=== PATIENT | male | born 1960 | race American Indian/Alaskan Native ===

== ENCOUNTER 2019-12-04 07:01 | Observation (INO) | payer MEDICARE ==
[2019-11-29 12:03] LABS: Basophils # (Auto) 0.1 K/mm3 (0.0-0.1); Basophils % (Auto) 0.9 % (0.0-1.8); Eosinophils # (Auto) 0.2 K/mm3 (0.0-0.4); Eosinophils % (Auto) 2.9 % (0.0-4.3); Hematocrit 34.9 % (35.5-45.6); Lymphocytes # (Auto) 2.1 K/mm3 (1.2-5.4); Lymphocytes % (Auto) 24.8 % (13.4-35.0); Mean Corpuscular HGB Conc 34 % (32-34); Mean Corpuscular Volume 82 fl (84-94); Monocytes # (Auto) 0.9 K/mm3 (0.0-0.8); Platelet Count 294 K/mm3 (140-440); Red Blood Count 4.26 M/mm3 (3.65-5.03); Red Cell Distribution Width 16.1 % (13.2-15.2)
--- NOTE | 2019-11-29 12:14 | Anesthesia Consultation ---
Anesthesia Consult and Med Hx Date of service: 12/04/19 - Airway Anesthetic Teeth Evaluation: Poor (denies loose teeth) ROM Head & Neck: Adequate Mental/Hyoid Distance: Adequate Mallampati Class: Class II Intubation Access Assessment: Probably Good - Pulmonary Exam CTA: No (scattered expiratory wheezing which resolved with cough) - Cardiac Exam Cardiac Exam: RRR - Pre-Operative Health Status ASA Pre-Surgery Classification: ASA3 Proposed Anesthetic Plan: General - Pulmonary Hx Smoking: Yes (quit 1 yr ago) Hx Respiratory Symptoms: No - Cardiovascular System Hx Hypertension: Yes (amlodipine prescribed prn but does not check BP regularly) Hx Heart Attack/AMI: No (normal EF on recent TTE) Hx Percutaneous Transluminal Coronary Angioplasty (PTCA): No Hx Cardia Arrhythmia: No - Central Nervous System CVA: No - Gastrointestinal Hx Gastroesophageal Reflux Disease: No - Endocrine Hx Renal Disease: Yes (CKD) Hx Liver Disease: No Hx Insulin Dependent Diabetes: Yes Hx Thyroid Disease: No - Hematic Hx Anemia: No - Other Systems Hx Cancer: Yes (prostate ca) Hx Obesity: No - Additional Comments Anesthesia Medical History Comments: No prior anesthetics. Patient has significant hearing impairment.
[2019-11-29 12:18] LABS: Albumin 4.1 g/dL (3.9-5); Calcium 9.7 mg/dL (8.4-10.2)
[2019-11-29 12:21] LABS: INR 0.93 (0.87-1.13)
[~2019-12-04 07:01] MED LIST: ALBUTEROL 2.5 MG/3 ML NEBU IH SCH; CELECOXIB 200 MG CAP PO NR; GABAPENTIN 300 MG CAP PO NR; LACTATED RINGERS 1,000 ML IV SCH; MIDAZOLAM 2 MG/2 ML INJ IV NR; ceFAZolin/Water 2 GM/20 ML 2 GM/20 ML SYRINGE IV NR
--- NOTE | 2019-12-04 07:19 | Anesthesia Day of Surgery ---
Anesthesia Day of Surgery - Day of Surgery Patient Examined: Yes Patient H&P Reviewed: Yes Patient is NPO: Yes
[2019-12-04] MEDS ORDERED: LIDOCAINE MPF (2%) 20 MG/1 ML VIAL 5 ML ONE (07:23)
[2019-12-04] MEDS ORDERED: propofoL 200 MG/20 ML VIAL IV ONE (07:23)
[2019-12-04] MEDS ORDERED: HYDROmorphone 1 MG/1 ML INJ ONE (07:23)
[2019-12-04] MEDS ORDERED: ROCURONIUM 50 MG/5 ML INJ IV ONE (07:24)
[2019-12-04] MEDS ORDERED: ONDANSETRON 4 MG/2 ML INJ IV PRN ×2 (07:43→11:00)
[2019-12-04] MEDS ORDERED: HYDROmorphone 1 MG/1 ML INJ IV PRN (07:43)
[2019-12-04] MEDS ORDERED: fentaNYL 100 MCG/2 ML INJ IV PRN (07:43)
[2019-12-04] MEDS ORDERED: CALCIUM CHLORIDE 1,000 MG/10 ML SYRINGE IV ONE ×2 (07:58→09:19)
[2019-12-04] MEDS ORDERED: CITRIC ACID-SOD CITRATE 500 ML IV ONE (07:58)
[2019-12-04] MEDS ORDERED: THROMBIN (RECOMBINANT) 5,000 UNIT VIAL TP ONE ×2 (07:59→09:20)
[2019-12-04] MEDS ORDERED: METHYLENE BLUE 50 MG/10 ML AMP ONE (07:59)
[2019-12-04] MEDS ORDERED: PHENYLEPHRINE/NS 1,000 MCG/10 ML SYRINGE (OR USE) IV ONE (08:37)
[2019-12-04] MEDS ORDERED: CITRIC ACID-SOD CITRATE SOLN 500 ML IV SOLN IV ONE (09:18)
[2019-12-04] MEDS ORDERED: BUPIVACAINE-EPINEPHRINE/PF 0.5%-1:200,000 (30 ML) VIAL INFILTRATI ONE ×2 (09:18→09:45)
[2019-12-04] MEDS ORDERED: SODIUM CHLORIDE 0.9% IRRIG SOLN 2000 ML IR ONE (09:19)
[2019-12-04] MEDS ORDERED: LACTATED RINGERS 1,000 ML ONE (10:35)
--- NOTE | 2019-12-04 10:56 | Short Stay Summary ---
Short Stay Documentation Date of service: 12/04/19 Narrative H&P: 59 yr old male with prostate cancer & urinary retention discussed options with pt & family agreed to robotic prostatectomy - History Past Medical History: diabetes, hypertension Past Surgical History: No surgical history Social history: no significant social history - Allergies and Medications Current Medications: Allergies No Known Allergies Allergy (Verified 11/28/19 17:02) Home Medications Medication Instructions Recorded Confirmed Last Taken Type Insulin Detemir [Levemir VIAL] 10 unit SQ BID 11/29/19 12/04/19 12/03/19 21:00 History Insulin Regular, Human [Novolin R] 6 unit SQ TID 11/29/19 12/04/19 12/03/19 19:00 History Tamsulosin [Flomax] 0.4 mg PO QDAY 11/29/19 12/04/19 12/03/19 09:00 History amLODIPine [Norvasc] 10 mg PO PRN PRN 11/29/19 12/04/19 11/20/19 09:00 History metFORMIN [Glucophage] 500 mg PO QDAY 11/29/19 12/04/19 12/03/19 09:00 History Active Medications Albuterol (Proventil) 2.5 mg IH PREOP BILLY Stop: 12/04/19 23:59 Last Admin: 12/04/19 07:30 Dose: 2.5 mg Documented by: Celecoxib (Celebrex) 200 mg PO PREOP NR Stop: 12/04/19 23:59 Last Admin: 12/04/19 07:30 Dose: 200 mg Documented by: Fentanyl (Sublimaze) 50 mcg IV Q5MIN PRN PRN Reason: Pain , Severe (7-10) Stop: 12/04/19 22:00 Gabapentin (Gabapentin) 300 mg PO PREOP NR Stop: 12/04/19 23:59 Last Admin: 12/04/19 07:30 Dose: 300 mg Documented by: Hydromorphone HCl (Dilaudid) 0.25 mg IV Q10MIN PRN PRN Reason: Pain, Moderate (4-6) Stop: 12/04/19 20:00 Cefazolin Sodium (Ancef/Sterile Water 2 Gm/20 Ml) 2 gm in 20 mls @ 80 mls/hr IV PREOP NR; Protocol Stop: 12/04/19 23:59 Lactated Ringer's (Lactated Ringers) 1,000 mls @ 100 mls/hr IV DIRECT BILLY Last Admin: 12/04/19 07:30 Dose: 100 mls/hr Documented by: Midazolam HCl (Versed) 2 mg IV PREOP NR Stop: 12/04/19 23:59 Ondansetron HCl (Zofran) 4 mg IV ONCE PRN PRN Reason: Nausea And Vomiting Stop: 12/04/19 13:00 - Physical exam General appearance: no acute distress, well-nourished Integumentary: no rash, no growths, no abnormal pigmentation HEENT: Atraumatic, PERRLA Lungs: Clear to auscultation, Normal air movement Gastrointestinal: normal Male Genitourinary: normal Rectal Exam: normal rectal tone Extremities: no ischemia, No edema - Brief post op/procedure progress note Date of procedure: 12/04/19 Pre-op diagnosis: prostate cancer, retention Post-op diagnosis: same Procedure: robotic prostatectomy Anesthesia: GETA Surgeon: MORGAN HALEY Estimated blood loss: 50-100ml Pathology: list (prostate) Specimen disposition: to lab Condition: stable - Hospital course Hospital course: cipro, norisidoro, post op info on chart dc vanessa--done Hb9/ Cr 2---will check as outpt - Disposition Condition at discharge: Stable Short Stay Discharge Plan Follow up with: PRIMARY CARE, [Primary Care Provider] - 7 Days
[2019-12-04] MEDS ORDERED: ZOLPIDEM 5 MG TAB PO PRN (11:00)
[2019-12-04] MEDS ORDERED: DEXTROSE 50% IN WATER (25GM) 50 ML SYRINGE IV PRN (11:00)
[2019-12-04] MEDS ORDERED: NALOXONE 0.4 MG/1 ML INJ IV PRN (11:00)
[2019-12-04] MEDS ORDERED: amLODIPine 10 MG TAB PO PRN (11:05)
[2019-12-04] MEDS ORDERED: KETOROLAC 30 MG/1 ML INJ ONE (11:07)
[2019-12-04] MEDS ORDERED: ONDANSETRON 4 MG/2 ML INJ ONE (11:07)
[2019-12-04] MEDS: INSULIN REGULAR, HUMAN 100 UNITS/1 ML SUB-Q SCH ×2 (11:40→18:25)
--- NOTE | 2019-12-04 11:42 | Post Anesthesia Evaluation ---
- Post Anesthesia Evaluation Patient Participated: Yes Airway Patent: Yes Stable Respiratory Function: Yes Nausea/Vomiting: No Temp > 96.8F: Yes Pain Manageable: Yes Adequeate Hydration: Yes Anesthesia Complications: No
[2019-12-04] MEDS: ceFAZolin/NS 1 GM/50 ML 1 GM/50 ML BAG IV SCH (16:38)
[2019-12-04] MEDS: SODIUM CHLORIDE 0.9% 1000 ML 1,000 ML IV SCH (16:41)
[2019-12-04] MEDS: MORPHINE 2 MG/1 ML INJ IV PRN (20:19)
--- NOTE | 2019-12-04 21:29 | Consultation ---
History of Present Illness - Reason for Consult Consult date: 12/04/19 Medical management Requesting physician: MORGAN HALEY - History of Present Illness S/p Robotic prostatectomy--doing well postoperatively.No SOB. Drain in place on L flank. Past History Past Medical History: diabetes, hypertension Past Surgical History: Other (Robotic prostatectomy) Social history: no significant social history, lives with family, full code Family history: hypertension Medications and Allergies Allergies Allergy/AdvReac Type Severity Reaction Status Date / Time No Known Allergies Allergy Verified 11/28/19 17:02 Home Medications Medication Instructions Recorded Confirmed Last Taken Type Insulin Detemir [Levemir VIAL] 10 unit SQ BID 11/29/19 12/04/19 12/03/19 21:00 History Insulin Regular, Human [Novolin R] 6 unit SQ TID 11/29/19 12/04/19 12/03/19 19:00 History Tamsulosin [Flomax] 0.4 mg PO QDAY 11/29/19 12/04/19 12/03/19 09:00 History amLODIPine [Norvasc] 10 mg PO PRN PRN 11/29/19 12/04/19 11/20/19 09:00 History metFORMIN [Glucophage] 500 mg PO QDAY 11/29/19 12/04/19 12/03/19 09:00 History Active Meds: Active Medications Acetaminophen/Hydrocodone Bitart ([place] 5/325) 2 each PO Q4H PRN PRN Reason: Pain, Moderate (4-6) Albuterol (Proventil) 2.5 mg IH PREOP BILLY Stop: 12/04/19 23:59 Last Admin: 12/04/19 07:30 Dose: 2.5 mg Documented by: Amlodipine Besylate (Amlodipine) 10 mg PO DAILY PRN PRN Reason: Hypertension Celecoxib (Celebrex) 200 mg PO PREOP NR Stop: 12/04/19 23:59 Last Admin: 12/04/19 07:30 Dose: 200 mg Documented by: Dextrose (D50w (25gm) Syringe) 50 ml IV Q30MIN PRN; Protocol PRN Reason: Hypoglycemia Fentanyl (Sublimaze) 50 mcg IV Q5MIN PRN PRN Reason: Pain , Severe (7-10) Stop: 12/04/19 22:00 Gabapentin (Gabapentin) 300 mg PO PREOP NR Stop: 12/04/19 23:59 Last Admin: 12/04/19 07:30 Dose: 300 mg Documented by: Cefazolin Sodium (Ancef/Sterile Water 2 Gm/20 Ml) 2 gm in 20 mls @ 80 mls/hr IV PREOP NR; Protocol Stop: 12/04/19 23:59 Lactated Ringer's (Lactated Ringers) 1,000 mls @ 100 mls/hr IV DIRECT BILLY Last Admin: 12/04/19 07:30 Dose: 100 mls/hr Documented by: Sodium Chloride (Nacl 0.9% 1000 Ml) 1,000 mls @ 100 mls/hr IV DIRECT BILLY Last Admin: 12/04/19 16:41 Dose: 100 mls/hr Documented by: Cefazolin Sodium (Ancef/Ns 1 Gm/50 Ml) 1 gm in 50 mls @ 100 mls/hr IV Q8H BILLY; Protocol Stop: 12/05/19 00:29 Last Admin: 12/04/19 16:38 Dose: 100 mls/hr Documented by: Insulin Glargine (Lantus) 10 units SUB-Q BID BILLY Insulin Human Regular (Humulin R) 6 units SUB-Q AC BILLY Last Admin: 12/04/19 18:25 Dose: 6 units Documented by: Metformin HCl (Glucophage) 500 mg PO QAMDIAB BILLY Midazolam HCl (Versed) 2 mg IV PREOP NR Stop: 12/04/19 23:59 Morphine Sulfate (Morphine) 2 mg IV Q4H PRN PRN Reason: Pain, Moderate (4-6) Last Admin: 12/04/19 20:19 Dose: 2 mg Documented by: Naloxone HCl (Naloxone) 0.1 mg IV Q2MIN PRN PRN Reason: Res Rate </= 8 or 02 SAT < 92% Ondansetron HCl (Zofran) 4 mg IV Q8H PRN PRN Reason: Nausea And Vomiting Zolpidem Tartrate (Ambien) 5 mg PO QHS PRN PRN Reason: Sleep Review of Systems All systems: negative Exam - Constitutional Vitals: Temp Pulse Resp BP Pulse Ox 97.9 F 70 18 151/70 100 12/04/19 19:44 12/04/19 19:44 12/04/19 20:19 12/04/19 19:44 12/04/19 19:44 General appearance: Present: no acute distress, well-nourished - EENT Eyes: Present: PERRL ENT: hearing intact, clear oral mucosa - Neck Neck: Present: supple, normal ROM - Respiratory Respiratory effort: normal Respiratory: bilateral: CTA - Cardiovascular Heart rate: 78 Rhythm: regular Heart Sounds: Present: S1 & S2. Absent: rub, click - Extremities Extremities: pulses symmetrical, No edema Peripheral Pulses: within normal limits - Abdominal General gastrointestinal: Present: soft, non-tender, non-distended, normal bowel sounds, other (Drain on left flank) Male genitourinary: Present: normal - Integumentary Integumentary: Present: clear, warm, dry - Musculoskeletal Musculoskeletal: gait normal, strength equal bilaterally - Psychiatric Psychiatric: appropriate mood/affect, intact judgment & insight - Neurologic Neurologic: CNII-XII intact, moves all extremities Results - Labs CBC & Chem 7: 11/29/19 10:50 11/29/19 10:50 Labs: Abnormal lab results 12/04/19 12/04/19 12/04/19 Range/Units 07:35 11:44 16:20 POC Glucose 165 H 267 H 199 H (70-105) Assessment and Plan - Patient Problems (1) BRANDON (acute kidney injury) Current Visit: Yes Status: Acute Plan to address problem: sec to VMN IV Fluids (2) IDDM (insulin dependent diabetes mellitus) Current Visit: Yes Status: Chronic Plan to address problem: COnt Insulin and coverage (3) HTN (hypertension) Current Visit: Yes Status: Chronic Qualifiers: Hypertension type: essential hypertension Qualified Code(s): I10 - Essential (primary) hypertension Plan to address problem: Cont antihypertensives (4) DVT prophylaxis Current Visit: Yes Status: Acute Plan to address problem: On SCD's
[2019-12-04] MEDS: INSULIN LISPRO 100 UNIT/ML SUB-Q SCH (21:58)
[2019-12-04] MEDS ORDERED: INSULIN DETEMIR 10 UNIT SQ SCH (22:00)
[2019-12-04] MEDS ORDERED: INSULIN GLARGINE 100 UNITS/ML SUB-Q SCH (22:00)
[2019-12-05] MEDS: MORPHINE 2 MG/1 ML INJ IV PRN ×2 (00:05→09:04)
[2019-12-05] MEDS: SODIUM CHLORIDE 0.9% 1000 ML 1,000 ML IV SCH (00:23)
[2019-12-05] MEDS: ceFAZolin/NS 1 GM/50 ML 1 GM/50 ML BAG IV SCH (00:27)
[2019-12-05] MEDS: HYDROcodone/ACETAMINOPHEN 5-325 MG TAB PO PRN ×2 (05:59→14:55)
[2019-12-05] MEDS ORDERED: metFORMIN 500 MG TAB PO SCH (08:00)
--- NOTE | 2019-12-05 08:57 | Event Note ---
Date: 12/05/19 S/p Robotic prostatectomy--doing well postoperatively vanessa removed 4am labs not drawn yet nurse informed possible home with [facility] after labs
[2019-12-05] MEDS: INSULIN REGULAR, HUMAN 100 UNITS/1 ML SUB-Q SCH ×3 (08:58→17:56)
[2019-12-05] MEDS: INSULIN LISPRO 100 UNIT/ML SUB-Q SCH ×3 (09:10→17:56)
[2019-12-05 10:44] LABS: Basophils % (Auto) 0.5 % (0.0-1.8); Eosinophils # (Auto) 0.1 K/mm3 (0.0-0.4); Eosinophils % (Auto) 1.2 % (0.0-4.3); Hematocrit 27.5 % (35.5-45.6); Hemoglobin 9.1 gm/dl (11.8-15.2); Lymphocytes # (Auto) 1.6 K/mm3 (1.2-5.4); Lymphocytes % (Auto) 18.2 % (13.4-35.0); Mean Corpuscular HGB Conc 33 % (32-34); Mean Corpuscular Volume 83 fl (84-94); Monocytes # (Auto) 0.8 K/mm3 (0.0-0.8); Monocytes % (Auto) 9.1 % (0.0-7.3); Platelet Count 304 K/mm3 (140-440); Red Blood Count 3.32 M/mm3 (3.65-5.03); Red Cell Distribution Width 15.9 % (13.2-15.2)
[2019-12-05 11:08] LABS: Calcium 8.4 mg/dL (8.4-10.2)
[2019-12-05 12:08] VITALS: BP 105/62
--- NOTE | 2019-12-05 17:20 | Progress Note ---
Assessment and Plan Assessment and plan: -- BRANDON (acute kidney injury) Current Visit: Yes Status: Acute Gentle hydration , BRANDON due to vasomotor nephropathy Advised plenty of oral fluids Patient advised to see private nephrology upon discharge -- IDDM (insulin dependent diabetes mellitus) Current Visit: Yes Status: Chronic COnt Insulin and coverage DC metformin due to acute kidney injury Can resume when he sees his primary care physician as needed --HTN (hypertension) Current Visit: Yes Status: Chronic Cont antihypertensives --Robotic prostatectomy; postop care per urology -- DVT prophylaxis Current Visit: Yes Status: Acute SCDs Continue current management Patient advised to follow primary care physician And side boss upon discharge History Interval history: Patient seen and examined at bedside Patient's chart and medical records reviewed Patient feels slightly better Complains of some pain Vital signs reviewed Hospitalist Physical - Constitutional Vitals: Temp Pulse Resp BP Pulse Ox 97.5 F L 95 H 18 105/62 98 12/05/19 12:02 12/05/19 12:02 12/05/19 12:02 12/05/19 12:12/05/19 12:02 General appearance: Present: no acute distress, well-nourished - EENT Eyes: Present: PERRL, EOM intact - Neck Neck: Present: supple, normal ROM - Respiratory Respiratory effort: normal Respiratory: bilateral: diminished, negative: rales, rhonchi, wheezing - Cardiovascular Rhythm: regular Heart Sounds: Present: S1 & S2 - Extremities Extremities: no ischemia, No edema - Abdominal General gastrointestinal: soft, non-tender, non-distended, normal bowel sounds - Integumentary Integumentary: Present: clear, warm - Psychiatric Psychiatric: appropriate mood/affect, cooperative - Neurologic Neurologic: moves all extremities Results - Labs CBC & Chem 7: 12/05/19 10:05 12/05/19 10:05 Labs: Laboratory Last Values WBC 8.5 K/mm3 (4.5-11.0) 12/05/19 10:05 RBC 3.32 M/mm3 (3.65-5.03) L 12/05/19 10:05 Hgb 9.1 gm/dl (11.8-15.2) L 12/05/19 10:05 Hct 27.5 % (35.5-45.6) L 12/05/19 10:05 MCV 83 fl (84-94) L 12/05/19 10:05 MCH 28 pg (28-32) 12/05/19 10:05 MCHC 33 % (32-34) 12/05/19 10:05 RDW 15.9 % (13.2-15.2) H 12/05/19 10:05 Plt Count 304 K/mm3 (140-440) 12/05/19 10:05 Lymph % (Auto) 18.2 % (13.4-35.0) 12/05/19 10:05 [place] % (Auto) 9.1 % (0.0-7.3) H 12/05/19 10:05 Eos % (Auto) 1.2 % (0.0-4.3) 12/05/19 10:05 Baso % (Auto) 0.5 % (0.0-1.8) 12/05/19 10:05 Lymph # 1.6 K/mm3 (1.2-5.4) 12/05/19 10:05 [place] # 0.8 K/mm3 (0.0-0.8) 12/05/19 10:05 Eos # 0.1 K/mm3 (0.0-0.4) 12/05/19 10:05 Baso # 0.0 K/mm3 (0.0-0.1) 12/05/19 10:05 Seg Neutrophils % 71.0 % (40.0-70.0) H 12/05/19 10:05 Seg Neutrophils # 6.1 K/mm3 (1.8-7.7) 12/05/19 10:05 PT 12.6 Sec. (12.2-14.9) 11/29/19 10:50 INR 0.93 (0.87-1.13) 11/29/19 10:50 APTT 40.0 Sec. (24.2-36.6) H 11/29/19 10:50 Sodium 137 mmol/L (137-145) 12/05/19 10:05 Potassium 4.9 mmol/L (3.6-5.0) 12/05/19 10:05 Chloride 99.9 mmol/L (98-107) 12/05/19 10:05 Carbon Dioxide 22 mmol/L (22-30) 12/05/19 10:05 Anion Gap 20 mmol/L 12/05/19 10:05 BUN 31 mg/dL (9-20) H 12/05/19 10:05 Creatinine 2.1 mg/dL (0.8-1.5) H 12/05/19 10:05 Estimated GFR 39 ml/min 12/05/19 10:05 BUN/Creatinine Ratio 15 % 12/05/19 10:05 Glucose 206 mg/dL (75-100) H 12/05/19 10:05 POC Glucose 163 (70-105) H 12/05/19 11:23 Calcium 8.4 mg/dL (8.4-10.2) 12/05/19 10:05 Total Bilirubin 0.40 mg/dL (0.1-1.2) 11/29/19 10:50 AST 32 units/L (5-40) 11/29/19 10:50 ALT 97 units/L (7-56) H 11/29/19 10:50 Alkaline Phosphatase 161 units/L (35-129) H 11/29/19 10:50 Total Protein 8.5 g/dL (6.3-8.2) H 11/29/19 10:50 Albumin 4.1 g/dL (3.9-5) 11/29/19 10:50 Albumin/Globulin Ratio 0.9 % 11/29/19 10:50 Blood Type O POSITIVE 12/04/19 07:20 Antibody Screen Negative 12/04/19 07:20 Active Medications - Current Medications Current Medications: Generic Name Dose Route Start Last Admin Trade Name Freq PRN Reason Stop Dose Admin Acetaminophen/Hydrocodone Bitart 2 each 12/04/19 11:00 12/05/19 14:55 [place] 5/325 PO 2 each Q4H PRN Administration Pain, Moderate (4-6) Amlodipine Besylate 10 mg 12/04/19 11:05 Amlodipine PO DAILY PRN Hypertension Dextrose 50 ml 12/04/19 11:00 D50w (25gm) Syringe IV Q30MIN PRN Hypoglycemia Protocol Lactated Ringer's 1,000 mls @ 100 mls/hr 12/04/19 06:00 12/04/19 07:30 Lactated Ringers IV 100 mls/hr DIRECT BILLY Administration Sodium Chloride 1,000 mls @ 100 mls/hr 12/04/19 11:00 12/05/19 00:23 Nacl 0.9% 1000 Ml IV 100 mls/hr DIRECT BILLY Administration Insulin Human Lispro 0 unit 12/04/19 22:00 12/05/19 12:18 Humalog SUB-Q 3 unit ACHS BILLY Administration Protocol Insulin Human Regular 6 units 12/04/19 11:30 12/05/19 12:18 Humulin R SUB-Q 6 units AC BILLY Administration Metformin HCl 500 mg 12/05/19 08:00 12/05/19 08:58 Glucophage PO 500 mg QAMDIAB BILLY Administration Morphine Sulfate 2 mg 12/04/19 11:00 12/05/19 09:04 Morphine IV 2 mg Q4H PRN Administration Pain, Moderate (4-6) Naloxone HCl 0.1 mg 12/04/19 11:00 Naloxone IV Q2MIN PRN Res Rate </= 8 or 02 SAT < 92% Ondansetron HCl 4 mg 12/04/19 11:00 12/05/19 00:04 Zofran IV 4 mg Q8H PRN Administration Nausea And Vomiting Zolpidem Tartrate 5 mg 12/04/19 11:00 12/05/19 00:04 Ambien PO 5 mg QHS PRN Administration Sleep
== END 2019-12-05 18:42 | disposition home or self-care (01) ==
LOC: OR 07:01 → 3B-SURG 11:00
PROVIDERS: ADMIT Urology; ATTEND Urology
DX: C61 Malignant neoplasm of prostate (principal); N17.9 Acute kidney failure, unspecified; E11.9 Type 2 diabetes mellitus without complications; I10 Essential (primary) hypertension; Z79.4 Long term (current) use of insulin; Z79.899 Other long term (current) drug therapy
CPT/HCPCS: 36415; 55866; 80048; 80053; 82962; 85025; 85610; 85730; 86850; 86900; 86901; 88309; 88312; 88342; 96365; 96366; 96375; 96376; 97116; 97162; A4217; G0378; J0690; J1170; J1885; J2270; J2370; J2405; J2704; J7030; J7120; S2900; J1815; Q9968